=== PATIENT | male | born 1985 | race American Indian/Alaskan Native ===

== ENCOUNTER 2016-03-06 11:05 | Emergency (ER) | payer OTHER ==
[2016-03-06 11:18] VITALS: BP 124/86
[2016-03-06] MEDS ORDERED: TORADOL IM ONE (12:52)
[2016-03-06] MEDS ORDERED: BENADRYL PO ONE (12:52)
--- NOTE | 2016-03-06 12:59 | Emergency Department Report ---
HPI - General Chief Complaint: Headache Time Seen by Provider: 03/06/16 12:39 - HPI HPI: 30-year-old male presents today with right-sided headache 3 weeks. Positive for history of migraine headaches and states this feels similar. Patient was seen by primary care provider 20 days ago and was prescribed sumatriptan, Flonase, amoxicillin without relief. Also complaining of sinus congestion with green mucus and ear pressure. Patient states he's been taking Goody patter with temporary relief. Positive for subjective fever and nausea. Denies shortness of breath, chest pain, vomiting, abdominal pain. ED Past Medical Hx - Past Medical History Previous Medical History?: Yes Hx Heart Attack/AMI: Yes - Surgical History Past Surgical History?: No - Social History Smoking Status: Former Smoker Substance Use Type: Alcohol, Prescribed - Medications Home Medications: Home Medications Medication Instructions Recorded Confirmed Last Taken Type Amoxicillin/K Clav Tab [Augmentin 1 tab PO BID #20 tab 03/06/16 Unknown Rx 875 mg] Fluticasone [Flonase] 03/06/16 03/04/16 History Ketorolac [Toradol] 10 mg PO Q6H PRN #15 tablet 03/06/16 Unknown Rx SUMAtriptan SUCCINATE [Imitrex] 03/06/16 Unknown History guaiFENesin [Mucinex] 1,200 mg PO Q12HR #20 tab 03/06/16 Unknown Rx ED Review of Systems ROS: Stated complaint: HEADACHE/FOR 3 WKS Other details as noted in HPI Constitutional: denies: chills, fever, malaise Eyes: denies: eye pain ENT: congestion, other (ear pressure). denies: ear pain, throat pain Respiratory: denies: cough, shortness of breath, wheezing Cardiovascular: denies: chest pain, palpitations Endocrine: no symptoms reported Gastrointestinal: denies: abdominal pain, nausea, vomiting Neurological: headache. denies: weakness, numbness, paresthesias Physical Exam - Physical Exam Vital Signs: Vital Signs 03/06/16 11:12 Temperature 97.8 F Pulse Rate 75 Respiratory 18 Rate Blood Pressure 124/86 O2 Sat by Pulse 98 Oximetry Physical Exam: GENERAL: The patient is well-developed and well-nourished. Patient is in NAD. HEAD: Normocephalic. Atraumatic. EYES: Extraocular motions are intact, PERRL. EARS: External auditory canals and tympanic membranes clear; hearing grossly intact. NOSE: Normal nasal mucosa with minimal nasal discharge. Positive for tenderness to palpation of frontal sinus. THROAT: No erythema, swelling or exudates. NECK: Supple, nontender, without lymphadenopathy. CHEST/LUNGS: Clear to auscultation throughout. HEART/CARDIOVASCULAR: Regular rate and rhythm. ABDOMEN: Abdomen is soft, nontender. Bowel sounds normoactive. EXTREMITIES: Peripheral pulses intact. Capillary refill less than 2 seconds. Neuro: Alert and oriented 3, normal gait, fluid speech, EOMs intact, normal facial sensation, strength exam 5/5 upper and lower extremities, GCS equals 15, finger to nose normal, negative Romberg test. ED Course Vital Signs 03/06/16 11:12 Temperature 97.8 F Pulse Rate 75 Respiratory 18 Rate Blood Pressure 124/86 O2 Sat by Pulse 98 Oximetry ED Medical Decision Making - Lab Data Vital Signs 03/06/16 11:12 Temperature 97.8 F Pulse Rate 75 Respiratory 18 Rate Blood Pressure 124/86 O2 Sat by Pulse 98 Oximetry - Medical Decision Making 30-year-old male presents today with headache 3 weeks. Positive for history of migraine headaches and states this is similar. His nares and is unremarkable. Patient has been given Toradol and Benadryl today. Patient has been provided with a referral for neurologist to follow up with. Patient is in no acute distress at this time. He will be discharged home and is encouraged to follow up with a primary care provider. He will be sent home on Augmentin, Toradol and Mucinex and is encouraged to return to the emergency room for any worsening symptoms. Critical care attestation.: If time is entered above; I have spent that time in minutes in the direct care of this critically ill patient, excluding procedure time. ED Disposition Clinical Impression: Migraine Qualifiers: Migraine type: unspecified Status migrainosus presence: without status migrainosus Intractability: not intractable Qualified Code(s): G43.909 - Migraine, unspecified, not intractable, without status migrainosus Sinusitis Qualifiers: Sinusitis location: frontal Chronicity: acute Recurrence: recurrent Qualified Code(s): J01.11 - Acute recurrent frontal sinusitis Disposition: DISCHARGED TO HOME OR SELFCARE Is pt being admited?: No Does the pt Need Aspirin: No Condition: Stable Instructions: Sinusitis (ED), Migraine Headache (ED) Additional Instructions: Follow with primary care provider. Return to the emergency department if symptoms worsen. Prescriptions: Amoxicillin/K Clav Tab [Augmentin 875 mg] 1 tab PO BID #20 tab guaiFENesin [Mucinex] 1,200 mg PO Q12HR #20 tab Ketorolac [Toradol] 10 mg PO Q6H PRN #15 tablet PRN Reason: Pain Referrals: YULIA ROSA MD [Primary Care Provider] - 3-5 Days ARAMIS HARO MD [Staff Physician] - 3-5 Days Forms: Work/School Release Form(ED) Time of Disposition: 13:00
== END 2016-03-06 13:12 | disposition home or self-care (01) ==
LOC: ED 11:05
DX: G43.909 Migraine, unspecified, not intractable, without status migrainosus (principal); J01.11 Acute recurrent frontal sinusitis; R50.9 Fever, unspecified; R11.0 Nausea; I25.2 Old myocardial infarction; Z87.891 Personal history of nicotine dependence
CPT/HCPCS: 96372; 99282; J1885